=== PATIENT | female | born 1945 | race Caucasian/White ===

== ENCOUNTER → 2020-11-08 10:03 | Outpatient (BNVA) | payer MEDICARE, OTHER, SELFPAY | PROVIDERS: PCP Nurse Practitioner Family; Visit Provider Nurse Practitioner Family | DX: M25.50 Pain in unspecified joint (principal); R60.9 Edema, unspecified; Z79.899 Other long term (current) drug therapy | CPT/HCPCS: 36415; 80053; 83880; 85025; 85651; 86140 ==

== ENCOUNTER → 2022-04-02 08:12 | Outpatient (BNVA) | payer MEDICARE, OTHER, SELFPAY | PROVIDERS: PCP Nurse Practitioner Family; Visit Provider Nurse Practitioner Family | DX: Z79.899 Other long term (current) drug therapy (principal); E78.5 Hyperlipidemia, unspecified; R05.3 Chronic cough | CPT/HCPCS: 80053; 80061 ==

== ENCOUNTER → 2023-07-23 09:45 | Outpatient (BNVA) | payer MEDICARE, OTHER, SELFPAY | PROVIDERS: PCP Nurse Practitioner Family; Visit Provider Nurse Practitioner Family | DX: Z79.899 Other long term (current) drug therapy (principal); E78.5 Hyperlipidemia, unspecified; R60.9 Edema, unspecified; M33.20 Polymyositis, organ involvement unspecified; M35.9 Systemic involvement of connective tissue, unspecified; J84.9 Interstitial pulmonary disease, unspecified | CPT/HCPCS: 80053; 80061 ==

== ENCOUNTER → 2023-08-07 08:16 | Outpatient (BNVA) | payer MEDICARE, OTHER, SELFPAY | PROVIDERS: PCP Nurse Practitioner Family; Visit Provider Nurse Practitioner Family | DX: E78.5 Hyperlipidemia, unspecified (principal); Z79.899 Other long term (current) drug therapy | CPT/HCPCS: 80053; 80061 ==

== ENCOUNTER → 2024-09-21 11:57 | Outpatient (BNVA) | payer MEDICARE, OTHER, SELFPAY | PROVIDERS: PCP Nurse Practitioner Family; Visit Provider Nurse Practitioner Family | DX: I10 Essential (primary) hypertension (principal) | CPT/HCPCS: 80053; 80061 ==